=== PATIENT | female | born 1990 | race Two or more races ===

== ENCOUNTER 2021-06-14 13:29 | Observation (INO) | payer SELFPAY ==
[2018-10-04 16:00] VITALS: BP 106/72
[~2021-06-14 13:29] MED LIST: IBUP-1060 PO
[2021-06-14] MEDS ORDERED: IV RINGERS,LACTATED 1000ML 1,000 ML IV SCH (14:45)
[2021-06-14 15:09] LABS: BILIRUBIN,URINE NEGATIVE (NEG); CLARITY,URINE CLEAR; COLOR,URINE YELLOW; NITRITE,URINE NEGATIVE (NEG); PH,URINE 6.5 (<5.0-8.0); PROTEIN,URINE NEGATIVE (NEG-TRACE)
[2021-06-14 15:17] LABS: BACTERIA,URINE FEW /HPF (0-FEW); RBC,URINE 0 /HPF (0-2)
--- NOTE | 2021-06-14 15:47 | PDOC1 ---
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 The pt was seen at 8:00 am and reported to have no FM for the last 2 days. She was sent to the [facility] for eval. The pt showed up to my office at around 1:00 pm. She was sent to L&D and was placed on the monitor. Her initial variability was minimal, but picked up after some time. Discussed indxn with the pt since she was beyond her EDC and reported decreased FM. Explained that indxn reduced the risk of IUFD. The pt would not like to be induced b/c she is not ctxing. Explained that an indxn would induce ctxs. She then states that she has no one to watch the kids. Informed the pt that I would recommend indxn with the above mentioned points. She still declines. PMH: H/o Pyelonephritis PSH: Denies Meds: PNV, Fe, Omeprazole All: NKDA OBHx: TSVD x 5, AB x 2 SH: no tob, no EtOH FH: prostate cancer, cervical CA Allergies: Coded Allergies: No Known Drug Allergies (Unverified , 06/13/14) Physical Exam: PE: GENERAL: No apparent distress. Alert and oriented. HEENT: Head normocephalic, atraumatic. NECK: Supple LUNGS: Clear to auscultation. HEART: RRR, S1, S2 present, pulses intact ABDOMEN: Soft, positive bowel sounds. EXTREMITIES: No cyanosis or edema. NEUROLOGIC: Normal speech, normal tone PSYCHIATRIC: Normal affect, normal mood. SKIN: No ulceration. FHT: 120s +acels/no decels/mLTV [place]: none SVE: 3/50/-2 Labs: Laboratory Tests Test 06/14/21 14:45 Urine Collection Type Unknown Urine Color Yellow Urine Clarity Clear Urine pH 6.5 (<5.0-8.0) Urine Specific [place] 1.015 (1.000-1.030) Urine Protein Negative mg/dL (NEG-TRACE) Urine Glucose (UA) Negative mg/dL (NEG) Urine Ketones (Stick) Negative mg/dL (NEG) Urine Blood Negative (NEG) Urine Nitrite Negative (NEG) Urine Bilirubin Negative (NEG) Urine Urobilinogen Dipstick 1.0 mg/dL (0.2 mg/dL) Urine Leukocyte Esterase Trace (NEG) Urine RBC 0 /HPF (0-2) Urine WBC 1-4 /HPF (0-4) Urine Squamous Epithelial Cells Few /LPF Urine Bacteria Few /HPF (0-FEW) Urine Mucus Slight /LPF Assessment & Plan: A/P 30y @ 40.4 by L=20 1.) Decreased FM NST reactive 2.) Based on EDC and decreased FM, indxn recommended to pt she declines 3.) Anemia - Hgb 10.7 4.) GERD - on omeprazole 5.) Flu vaccine given 10/01/20 6.) TDAP given 04/07/21 7.) Fetus cat I FHT 8.) GBS neg IONA SIERRA MD Jun 14, 2021 15:47
[2021-06-16] MEDS ORDERED: FERR325T14 PO (09:50)
[2021-06-16] MEDS ORDERED: IBUP-1060 PO (09:50)
[2021-06-16] MEDS ORDERED: DOCU-109 PO (09:50)
== END 2021-06-14 15:20 | disposition home or self-care (01) ==
LOC: 3 SO LND 13:29
PROVIDERS: ADMIT Obstetrics & Gynecology; ATTEND Obstetrics & Gynecology
DX: O36.8130 Decreased fetal movements, third trimester, not applicable or unspecified (principal); O48.0 Post-term pregnancy; O26.893 Other specified pregnancy related conditions, third trimester; N12 Tubulo-interstitial nephritis, not specified as acute or chronic; Z3A.40 40 weeks gestation of pregnancy
CPT/HCPCS: 81001; 87086; G0378; G0379; 59025